=== PATIENT | female | born 1990 | race African-American/Black ===

== ENCOUNTER 2016-08-09 12:20 | Emergency (ER) | payer OTHER ==
[~2016-08-09] VITALS: Ht 165.1 cm; Wt 63.5 kg
[2016-08-09 12:21] VITALS: BP 151/60
[2016-08-09] MEDS ORDERED: NAPR500T PO (14:29)
[2016-08-09] MEDS ORDERED: CYCL10TA PO (14:29)
== END 2016-08-09 14:45 | disposition home or self-care (01) ==
LOC: M ED 14:36
DX: S16.1XXA Strain of muscle, fascia and tendon at neck level, initial encounter (principal); X50.3XXA Overexertion from repetitive movements, initial encounter; Y92.099 Unspecified place in other non-institutional residence as the place of occurrence of the external cause; Y93.E3 Activity, vacuuming; Y99.0 Civilian activity done for income or pay

== ENCOUNTER → 2016-11-02 | Outpatient (CLI) | payer OTHER ==
[~2016-11-02] MED LIST: CYCL10TA PO; NAPR500T PO
== END ==
LOC: M WUC 09:53
PROVIDERS: ATTEND Physician Assistant
DX: S29.012A Strain of muscle and tendon of back wall of thorax, initial encounter (principal); X58.XXXA Exposure to other specified factors, initial encounter; Y92.89 Other specified places as the place of occurrence of the external cause; Y93.89 Activity, other specified; Y99.8 Other external cause status

== ENCOUNTER → 2017-01-07 | Outpatient (CLI) | payer OTHER ==
--- NOTE | 2017-01-07 18:28 | REP ---
MR THORACIC SPINE WITHOUT CONTRAST: HISTORY: Back pain. There is no disc bulge or herniation. The spinal canal and the neural foramina are patent. The spinal cord is normal in signal intensity. Normal signal intensity is present in the thoracic vertebral bodies. IMPRESSION: There is no disc bulge or herniation. Signed by Jose Gomez MD 01/07/2017 07:44 P
== END ==
LOC: M RAD 15:01
PROVIDERS: ATTEND Orthopaedic Surgery
DX: M54.6 Pain in thoracic spine (principal)

== ENCOUNTER → 2017-04-11 | Outpatient (REF) | LOC: M LAB 15:30 | PROVIDERS: ATTEND Nurse Practitioner Adult Health | DX: Z02.9 Encounter for administrative examinations, unspecified (principal) ==

== ENCOUNTER 2017-05-18 09:28 | Emergency (ER) | payer OTHER ==
[2017-05-18 10:22] LABS: BASO % 0.2 % (0.0-1.0); EOS % 0.7 % (0.0-3.0); HEMATOCRIT 30.8 % (36.0-47.0); HEMOGLOBIN 9.8 g/dl (12.0-16.0); IMMATURE GRANULOCYTE % 0.2 % (0-0); LYMPH # 1.7 10^3/uL (1.5-6.5); LYMPH % 39.9 % (24.0-44.0); MEAN CORPUSCULAR HEMOGLOBIN 22.1 pg (27.0-33.0); MEAN CORPUSCULAR HGB CONC 31.8 g/dl (32.0-36.5); MEAN CORPUSCULAR VOLUME 69.5 fl (80.0-96.0); MONO # 0.3 10^3/uL (0.0-0.8); NEUTROPHILS # 2.3 10^3/uL (1.8-7.7); PLATELET COUNT, AUTOMATED 194 10^3/uL (150-450); RED BLOOD COUNT 4.43 10^6/uL (4.00-5.40); RED CELL DISTRIBUTION WIDTH 15.1 % (11.5-14.5); WHITE BLOOD COUNT 4.4 10^3/uL (4.0-10.0)
[2017-05-18 10:30] LABS: APPEARANCE, URINE HAZY (CLEAR); BACTERIA, URINE AUTO NEGATIVE (NEGATIVE); BILIRUBIN, URINE AUTO NEGATIVE (NEGATIVE); BLOOD, URINE BLOOD 3+ (NEGATIVE); COLOR, URINE RED (YELLOW); GLUCOSE, URINE (UA) AUTO NEGATIVE (NEGATIVE); KETONE, URINE AUTO NEGATIVE (NEGATIVE); LEUKOCYTE ESTERASE, URINE AUTO NEGATIVE (NEGATIVE); NITRITE, URINE AUTO NEGATIVE (NEGATIVE); PROTEIN, URINE AUTO 1+ mg/dL (NEGATIVE); RBC, URINE AUTO TNTC /HPF (0-3); SPECIFIC GRAVITY URINE AUTO 1.009 (1.002-1.035); SQUAMOUS EPITHELIAL CELL UR AU 0 /HPF (0-6); UROBILINOGEN, URINE AUTO 0.2 mg/dL (0.0-2.0); WBC, URINE AUTO 15 /HPF (0-3)
[2017-05-18 10:41] LABS: HCG, SERUM QUANTITATIVE 6 MIU/ML
== END 2017-05-18 12:06 | disposition home or self-care (01) ==
LOC: M ED 09:28
DX: O03.9 Complete or unspecified spontaneous abortion without complication (principal); N83.202 Unspecified ovarian cyst, left side
CPT/HCPCS: 76801

== ENCOUNTER → 2017-05-20 | Outpatient (CLI) | payer OTHER ==
[2017-05-20 09:26] LABS: HCG, SERUM QUANTITATIVE 4 MIU/ML
== END ==
LOC: M LAB 08:31
DX: O03.9 Complete or unspecified spontaneous abortion without complication (principal)
CPT/HCPCS: 84702

== ENCOUNTER → 2017-06-09 | Outpatient (CLI) | payer OTHER | LOC: M RAD 15:23 | DX: N83.202 Unspecified ovarian cyst, left side (principal) | CPT/HCPCS: 76856 ==

== ENCOUNTER → 2017-10-27 | Outpatient (CLI) | payer OTHER ==
[2017-10-27 13:40] LABS: BASO % 0.3 % (0.0-1.0); EOS % 0.5 % (0.0-3.0); HEMATOCRIT 28.4 % (36.0-47.0); HEMOGLOBIN 9.2 g/dl (12.0-15.5); IMMATURE GRANULOCYTE % 0.3 % (0-3.0); LYMPH # 1.3 10^3/uL (1.5-6.5); LYMPH % 21.1 % (24.0-44.0); MEAN CORPUSCULAR HEMOGLOBIN 22.7 pg (27.0-33.0); MEAN CORPUSCULAR HGB CONC 32.4 g/dl (32.0-36.5); MONO # 0.4 10^3/uL (0.0-0.8); NEUTROPHILS # 4.5 10^3/uL (1.8-7.7); NEUTROPHILS % 71.8 % (36.0-66.0); PLATELET COUNT, AUTOMATED 208 10^3/uL (150-450); RED BLOOD COUNT 4.06 10^6/uL (4.00-5.40); RED CELL DISTRIBUTION WIDTH 15.3 % (11.5-14.5); WHITE BLOOD COUNT 6.3 10^3/uL (4.0-10.0)
[2017-10-27 16:16] LABS: CHLAMYDIA DNA AMPLIFICATION NEGATIVE (NEGATIVE); GC DNA AMPLIFICATION NEGATIVE (NEGATIVE)
[2017-10-28 12:04] LABS: RUBELLA IgG QUALITATIVE IMMUNE (IMMUNE)
[2017-10-28 12:07] LABS: HBsAg Prenatal NEGATIVE (NEGATIVE)
[2017-10-28 12:33] LABS: HIV 1&2 SCREEN CENTAUR NEGATIVE (NEGATIVE)
== END ==
LOC: M SMT 09:30
DX: Z34.81 Encounter for supervision of other normal pregnancy, first trimester (principal); Z3A.08 8 weeks gestation of pregnancy
CPT/HCPCS: 86762

== ENCOUNTER 2017-10-28 20:12 | Emergency (ER) | payer OTHER | END 2017-10-29 00:23 | disposition left against medical advice (07) | LOC: M ED 20:12 | DX: Z53.21 Procedure and treatment not carried out due to patient leaving prior to being seen by health care provider (principal) ==

== ENCOUNTER 2017-10-29 10:31 | Emergency (ER) | payer OTHER ==
[2017-10-29] MEDS: NS 1,000 ML IV (10:00)
[2017-10-29 11:11] LABS: HCG, SERUM QUANTITATIVE 187470 MIU/ML
[2017-10-29 11:40] LABS: KETONE, URINE AUTO RFX TRACE mg/dL (NEGATIVE); LEUKOCYTE ESTERASE UR AUTO RFX NEGATIVE (NEGATIVE); NITRITE, URINE AUTO RFX NEGATIVE (NEGATIVE); RBC, URINE AUTO RFX 0 /HPF (0-3); SPECIFIC GRAVITY UR AUTO RFX 1.005 (1.002-1.035); SQUAM EPITHELIAL CELL UR AURFX 4 /HPF (0-6); WBC, URINE AUTO RFX 0 /HPF (0-3)
== END 2017-10-29 11:55 | disposition home or self-care (01) ==
LOC: M ED 10:31
DX: O26.891 Other specified pregnancy related conditions, first trimester (principal); R10.2 Pelvic and perineal pain; Z3A.09 9 weeks gestation of pregnancy
CPT/HCPCS: 76801

== ENCOUNTER 2018-01-05 12:06 | Emergency (ER) | payer OTHER ==
[2018-01-05 13:37] LABS: BEDSIDE GLUCOSE 81 MG/DL (70-105)
[2018-01-05 13:54] LABS: KETONE, URINE AUTO RFX NEGATIVE (NEGATIVE); LEUKOCYTE ESTERASE UR AUTO RFX NEGATIVE (NEGATIVE); MUCUS, URINE RFX SMALL (NEGATIVE); NITRITE, URINE AUTO RFX NEGATIVE (NEGATIVE); RBC, URINE AUTO RFX 0 /HPF (0-3); SPECIFIC GRAVITY UR AUTO RFX 1.019 (1.002-1.035); SQUAM EPITHELIAL CELL UR AURFX 5 /HPF (0-6); WBC, URINE AUTO RFX 2 /HPF (0-3)
[2018-01-05 13:55] LABS: BASO % 0.1 % (0.0-1.0); EOS % 0.6 % (0.0-3.0); HEMATOCRIT 24.7 % (36.0-47.0); HEMOGLOBIN 7.8 g/dl (12.0-15.5); IMMATURE GRANULOCYTE % 0.6 % (0-3.0); LYMPH # 1.4 10^3/uL (1.5-6.5); LYMPH % 20.6 % (24.0-44.0); MEAN CORPUSCULAR HEMOGLOBIN 22.7 pg (27.0-33.0); MEAN CORPUSCULAR HGB CONC 31.6 g/dl (32.0-36.5); MEAN CORPUSCULAR VOLUME 71.8 fl (80.0-96.0); MONO # 0.5 10^3/uL (0.0-0.8); MONO % 7.2 % (0.0-5.0); NEUTROPHILS # 4.9 10^3/uL (1.8-7.7); NEUTROPHILS % 70.9 % (36.0-66.0); PLATELET COUNT, AUTOMATED 182 10^3/uL (150-450); RED BLOOD COUNT 3.44 10^6/uL (4.00-5.40); RED CELL DISTRIBUTION WIDTH 15.9 % (11.5-14.5); WHITE BLOOD COUNT 6.9 10^3/uL (4.0-10.0)
[2018-01-05 14:23] LABS: ANION GAP 8 MEQ/L (8-16); BLOOD UREA NITROGEN 7 MG/DL (7-18); CALCIUM LEVEL 8.8 MG/DL (8.5-10.1); CARBON DIOXIDE LEVEL 26 MEQ/L (21-32); CHLORIDE LEVEL 105 MEQ/L (98-107); CREATININE FOR GFR 0.44 MG/DL (0.55-1.30); FREE THYROXINE INDEX 2.7 % (1.3-4.8); GLOMERULAR FILTRATION RATE > 60.0 (>60); GLUCOSE, FASTING 68 MG/DL (70-100); POTASSIUM SERUM 3.7 MEQ/L (3.5-5.1); SODIUM LEVEL 139 MEQ/L (136-145); T UPTAKE 20 % (30-39); THYROID STIMULATING HORMONE 0.407 uIU/ML (0.358-3.740); THYROXINE (T4) 13.6 UG/DL (4.5-12.0)
== END 2018-01-05 15:45 | disposition home or self-care (01) ==
LOC: M ED 12:06
DX: O26.92 Pregnancy related conditions, unspecified, second trimester (principal); R00.2 Palpitations; O99.012 Anemia complicating pregnancy, second trimester; D50.9 Iron deficiency anemia, unspecified
CPT/HCPCS: 76811

== ENCOUNTER → 2018-01-20 | Outpatient (CLI) | payer OTHER | LOC: M RAD 15:23 | DX: Z36.89 Encounter for other specified antenatal screening (principal); Z3A.21 21 weeks gestation of pregnancy | CPT/HCPCS: 76816 ==

== ENCOUNTER → 2018-02-28 | Outpatient (CLI) | payer OTHER ==
[2018-02-28 13:26] LABS: BASO % 0.2 % (0.0-1.0); EOS % 0.5 % (0.0-3.0); HEMATOCRIT 23.4 % (36.0-47.0); HEMOGLOBIN 7.3 g/dl (12.0-15.5); IMMATURE GRANULOCYTE % 0.9 % (0-3.0); LYMPH # 1.4 10^3/uL (1.5-6.5); LYMPH % 24.3 % (24.0-44.0); MEAN CORPUSCULAR HEMOGLOBIN 22.6 pg (27.0-33.0); MEAN CORPUSCULAR HGB CONC 31.2 g/dl (32.0-36.5); MEAN CORPUSCULAR VOLUME 72.4 fl (80.0-96.0); MONO # 0.5 10^3/uL (0.0-0.8); MONO % 7.9 % (0.0-5.0); NEUTROPHILS # 3.8 10^3/uL (1.8-7.7); NEUTROPHILS % 66.2 % (36.0-66.0); PLATELET COUNT, AUTOMATED 155 10^3/uL (150-450); RED BLOOD COUNT 3.23 10^6/uL (4.00-5.40); RED CELL DISTRIBUTION WIDTH 15.1 % (11.5-14.5); WHITE BLOOD COUNT 5.8 10^3/uL (4.0-10.0)
[2018-02-28 13:50] LABS: GLUCOSE CHALLENGE TEST 1 HOUR 97 MG/DL (LESS THAN 140)
== END ==
LOC: M LAB 11:46
DX: Z34.82 Encounter for supervision of other normal pregnancy, second trimester (principal); Z3A.00 Weeks of gestation of pregnancy not specified
CPT/HCPCS: 82950

== ENCOUNTER 2018-03-15 08:29 | Outpatient (CLI) | payer OTHER ==
[2018-03-15] MEDS: IRON SUCROSE 500 MG in NS 250 ML IV (09:30)
== END 2018-03-15 13:45 | disposition home or self-care (01) ==
LOC: M INFU 08:29
DX: D64.9 Anemia, unspecified (principal)
CPT/HCPCS: J1756

== ENCOUNTER → 2018-03-24 | Outpatient (CLI) | payer OTHER ==
[2018-03-24 14:33] LABS: BASO % 0.1 % (0.0-1.0); EOS % 0.4 % (0.0-3.0); HEMOGLOBIN 7.5 g/dl (12.0-15.5); IMMATURE GRANULOCYTE % 0.6 % (0-3.0); LYMPH # 1.3 10^3/uL (1.5-6.5); LYMPH % 18.6 % (24.0-44.0); MEAN CORPUSCULAR HEMOGLOBIN 23.1 pg (27.0-33.0); MEAN CORPUSCULAR HGB CONC 31.3 g/dl (32.0-36.5); MEAN CORPUSCULAR VOLUME 74.1 fl (80.0-96.0); MONO # 0.5 10^3/uL (0.0-0.8); NEUTROPHILS # 4.8 10^3/uL (1.8-7.7); NEUTROPHILS % 72.3 % (36.0-66.0); PLATELET COUNT, AUTOMATED 154 10^3/uL (150-450); RED BLOOD COUNT 3.24 10^6/uL (4.00-5.40); WHITE BLOOD COUNT 6.7 10^3/uL (4.0-10.0)
[2018-03-24 14:52] LABS: POS COUNT POS FLAG
== END ==
LOC: M SMT 09:27
DX: O99.012 Anemia complicating pregnancy, second trimester (principal)
CPT/HCPCS: 85025

== ENCOUNTER 2018-04-28 12:14 | Outpatient (CLI) | payer OTHER ==
[~2018-04-28] VITALS: Ht 167.6 cm; Wt 82.2 kg
[~2018-04-28 12:14] MED LIST changes: +IRON27TA2 PO; +MULTTAB20 PO; +NAPR-49 PO; -NAPR500T PO
[2018-04-28 12:20] VITALS: BP 105/55
[2018-04-28] MEDS ORDERED: IRON SUCROSE 500 MG in NS 250 ML OVER 4 HRS IV ONE (13:00)
[2018-04-28 13:46] VITALS: BP 108/59
[2018-04-28 14:30] VITALS: BP 113/60
[2018-04-28 15:30] VITALS: BP 110/65
[2018-04-28 17:00] VITALS: BP 118/61
[2018-04-28 18:16] VITALS: BP 120/65
== END 2018-04-28 18:13 | disposition home or self-care (01) ==
LOC: M INFU 12:14
PROVIDERS: ATTEND Obstetrics & Gynecology
DX: D64.9 Anemia, unspecified (principal)
CPT/HCPCS: 96365; 96366; J1756

== ENCOUNTER → 2018-05-10 | Outpatient (REF) | payer OTHER ==
[~2018-05-10] MED LIST changes: -NAPR-49 PO; +NAPR-50 PO
== END ==
LOC: M LAB REF 13:03
PROVIDERS: ATTEND Obstetrics & Gynecology
DX: O99.013 Anemia complicating pregnancy, third trimester (principal)

== ENCOUNTER 2018-06-01 04:27 | Inpatient (IN) | payer OTHER ==
[2018-06-01] VITALS (12 sets, daily range): BP systolic 113–169; BP diastolic 57–104
[~2018-06-01] VITALS: Ht 162.6 cm; Wt 85.0 kg
[2018-06-01] MEDS ORDERED: BUTORPHANOL 2 MG/ML INJ (J0595) IV ONE (05:30)
[2018-06-01] MEDS ORDERED: PROMETHAZINE INJ 25 MG/ML VIAL (J2550) IV ONE (05:30)
[2018-06-01 05:41] LABS: HEMATOCRIT 28.4 % (36.0-47.0); MEAN CORPUSCULAR HGB CONC 31.7 g/dl (32.0-36.5); MEAN CORPUSCULAR VOLUME 72.6 fl (80.0-96.0); PLATELET COUNT, AUTOMATED 161 10^3/uL (150-450); RED BLOOD COUNT 3.91 10^6/uL (4.00-5.40); WHITE BLOOD COUNT 8.7 10^3/uL (4.0-10.0)
--- NOTE | 2018-06-01 06:46 | HPE ---
DATE OF ADMISSION: 06/01/2018 Jaylyn is a 27-year-old 4, para 2-0-1-3 at 39-5/7 weeks gestation with an estimated date of confinement (EDC) of 06/03/2018 based on last menstrual period and confirmed with a first trimester ultrasound. She presents to labor and delivery today with report of onset of uncomfortable contractions at 2130 hours last night that have progressively become more uncomfortable and stronger. She denies any vaginal bleeding and leakage of fluid. The fetus has been active. Her care was initiated at [facility] in the first trimester. Her course has been complicated by previous section for twin delivery, she does desire a trial of labor after (TOLAC), and anemia. She has undergone iron transfusions during this . OBSTETRICAL HISTORY: January 2011 at 39 weeks gestation, vaginal delivery 7 pound 13 ounce female. July 2012 at 38 weeks a primary section for twin malpresentation, 5 pound 6 ounce female, 6 pound 5 ounce female. May 2017 spontaneous miscarriage. OBSTETRIC LABS: O positive, antibody screen negative, rubella immune, VDRL nonreactive. Urine culture no growth. Hep B surface antigen negative. HIV negative. Hep C antibody nonreactive. Gonorrhea and chlamydia negative. Gestational diabetic screening normal at 97. Her Group B Streptococcus (GBS) is negative. PAST MEDICAL HISTORY: Human papillomavirus (HPV). SURGERIES: section. FAMILY HISTORY: Hypertension, asthma. SOCIAL HISTORY Patient is single, however father of the baby at bedside and supportive. She is a nonsmoker. She denies alcohol and drug use. There is a history of HPV and gonorrhea. She does deny a history of abuse. ALLERGIES: No known drug allergies. CURRENT MEDICATIONS: Include: - vitamins OBJECTIVE: Temperature 98.8, pulse 106. Blood pressure is 134/75. She appears very uncomfortable with her contractions and is coping well with deep breathing and moaning. heart rate is 150 with moderate variability. There are 10 accelerations and there are occasional variable decelerations with contractions. She is pratima every 2-4 minutes. They do palpate strong. Her sterile vaginal exam 3 cm dilated, 90% effaced, -1 station, normal show. Her abdomen is gravid, cephalic presentation. Estimated weight around 8 pounds. ASSESSMENT: Intrauterine at 39-5/7 weeks. Early latent labor. PLAN: Admit the patient to labor and delivery. Routine labs. Out of bed ad kaci. Clear liquid diet. The patient desires to cope with her labor physiologically and reports she may request some IV pain medication. I do anticipate active labor. Dr. Riddle notified of the patient's status on arrival.
[2018-06-01] MEDS ORDERED: FENTANYL 2MCG/ML ROPIVACAINE 0.2% IN 0.9% NACL 100ML IVBAG As Ordered ONE (09:04)
[2018-06-01] MEDS ORDERED: OXYTOCIN 30 UNITS IN 0.9% NaCl 500ML IV BAG (J2590) As Ordered ONE (09:20)
[2018-06-01] MEDS ORDERED: OXYTOCIN DRIP 30 UNITS in APPROPRIATE DILUENT 1 EA IV SCH (09:57)
[2018-06-01] MEDS ORDERED: LIDOCAINE 1% MDV 20ML VIAL INFIL ONE (10:00)
[2018-06-01] MEDS ORDERED: RHOGAM 300 MCG (1500 IU) INJ (J2790) IM SCH (10:00)
[2018-06-01] MEDS ORDERED: MOM 30ML SUSPENSION UDC PO PRN (10:00)
[2018-06-01] MEDS ORDERED: MEASLES,MUMPS,RUBELLA VACCINE INJ (MMR-II) (90707) SC SCH (10:00)
[2018-06-01] MEDS ORDERED: DIBUCAINE 1% OINTMENT 30GM TOP PRN (10:00)
[2018-06-01] MEDS ORDERED: METHYLERGONOVINE MALEATE 0.2 MG TAB PO PRN (10:00)
[2018-06-01] MEDS ORDERED: DOCUSATE SODIUM 100 MG CAP PO PRN (10:00)
[2018-06-01] MEDS ORDERED: ACETAMINOPHEN 500 MG TAB PO PRN (10:00)
[2018-06-01] MEDS ORDERED: ANUSOL HC CREAM 30GM TOP PRN (10:00)
--- NOTE | 2018-06-01 10:11 | DN ---
DATE OF DELIVERY: 06/01/2018 TIME OF : 0928 hours. GENDER: Female. SCORE: 9 and 9. WEIGHT: 3260 grams or 7 pounds 3 ounces. LACERATIONS: Second-degree midline laceration. ANESTHESIA: None. ESTIMATED BLOOD LOSS: 300 mL. COUNTS: 5 laparotomy sponges accounted for prior to and after delivery. 3 sharps removes from the delivery field. DELIVERY NOTE: On 06/01/2018, at 0928 hours, Mrs. Kelly, a 27-year-old, 4, now para 4, had a vaginal after section of a liveborn female infant, score 9 and 9, weight was 3260 grams or 7 pounds 3 ounces. Head was delivered occiput anterior (OA), followed by delivery of shoulders and corpus. Infant was handed to mom with a good cry. Cord was then clamped times two. It and was cut by the father of the baby under my direction. Placenta was then drained and delivered grossly intact. A premixed bag of 500 mL of normal saline with 30 units of Pitocin was then bolused along with uterine massage until the uterus was firm. On inspection, there was a second-degree midline laceration, which was repaired with 30 Vicryl Rapide after infusing it with 1% lidocaine. On re-inspection, the cervix, vagina and perineum was grossly intact and hemostatic. Mom and baby recovered in stable condition. The couple have decided to name their daughter, .
[2018-06-01] MEDS: IBUPROFEN 800 MG TAB PO PRN ×2 (11:32→19:24)
[2018-06-02 06:00] VITALS: BP 109/53
--- NOTE | 2018-06-02 07:46 | NUR ---
PPD#1 S: Doing well w/o complaints. Decreasing lochia, pain controlled, + voids and ambulation. O: vss, AF Gen: well appearing abd: soft, nttp with ff@u-1 ext: neg calf tenderness A/P: PPD#1 s/p vaginal delivery -currently stable -continue routine care -d/c plans for tomorrow Shaylee Riddle MD
[2018-06-02] MEDS: PRENATAL VITAMINS CHEWABLE TABLET PO SCH (08:47)
[2018-06-02] MEDS: IBUPROFEN 800 MG TAB PO PRN (12:48)
[2018-06-02 18:00] VITALS: BP 101/52
[2018-06-03] MEDS: IBUPROFEN 800 MG TAB PO PRN (01:11)
[2018-06-03 05:56] VITALS: BP 107/56
[2018-06-03] MEDS: PRENATAL VITAMINS CHEWABLE TABLET PO SCH (07:33)
[2018-06-03] MEDS ORDERED: MAPA500T2 PO (08:33)
[2018-06-03] MEDS ORDERED: IBUP-1114 PO (08:33)
== END 2018-06-03 11:10 | disposition home or self-care (01) | DRG 560 ==
LOC: M LDO 04:27 → M LDI 05:08 → M OBS 12:30
PROVIDERS: ADMIT Advanced Practice Midwife; ATTEND Advanced Practice Midwife
PROC: 10E0XZZ Delivery of Products of Conception, External Approach (ICD-10-PCS; principal; 2018-06-01)
PROC: 0KQM0ZZ Repair Perineum Muscle, Open Approach (ICD-10-PCS; 2018-06-01)
DX: O34.211 Maternal care for low transverse scar from previous cesarean delivery (principal); D50.9 Iron deficiency anemia, unspecified; Z37.0 Single live birth; Z3A.39 39 weeks gestation of pregnancy; O70.1 Second degree perineal laceration during delivery; O99.02 Anemia complicating childbirth

== ENCOUNTER → 2019-09-25 | Outpatient (REF) | payer OTHER ==
[~2019-09-25] MED LIST changes: +CYCL-707 PO; -CYCL10TA PO; +IBUP-1114 PO; +MAPA500T2 PO; -NAPR-50 PO; +NAPR-837 PO
== END ==
LOC: M WUC 16:04
PROVIDERS: ATTEND Nurse Practitioner Family
DX: R30.0 Dysuria (principal)

== ENCOUNTER 2022-04-10 14:59 | Inpatient (IN) | payer OTHER ==
[~2022-04-10] VITALS: Ht 165.1 cm; Wt 74.4 kg
[~2022-04-10 14:59] MED LIST changes: -AUGM500T34 PO; -HYDR-3715 PO
[2022-04-10] MEDS ORDERED: ACETAMINOPHEN 500 MG TAB PO ONE (15:30)
[2022-04-10] MEDS ORDERED: NS 1,000 ML IV ONE (15:30)
[2022-04-10 15:49] LABS: BASO % 0.3 % (0.0-1.0); HEMATOCRIT 29.5 % (36.0-47.0); HEMOGLOBIN 9.6 g/dl (12.0-15.5); LYMPH % 13.7 % (24.0-44.0); MEAN CORPUSCULAR HEMOGLOBIN 22.7 pg (27.0-33.0); MEAN CORPUSCULAR HGB CONC 32.5 g/dl (32.0-36.5); MEAN CORPUSCULAR VOLUME 69.7 fl (80.0-96.0); MONO # 0.4 10^3/uL (0.0-0.8); MONO % 5.5 % (2.0-8.0); PLATELET COUNT, AUTOMATED 215 10^3/uL (150-450); RED BLOOD COUNT 4.23 10^6/uL (4.00-5.40); WHITE BLOOD COUNT 7.5 10^3/uL (4.0-10.0)
[2022-04-10] MEDS ORDERED: PIPERACILLIN/TAZOBACTAM SOD 3.375 GM in D5W MINI-BAG PLUS 50 ML IV ONE (15:50)
[2022-04-10 16:26] LABS: ALBUMIN 3.9 G/DL (3.2-5.2); BILIRUBIN,DIRECT 0.2 MG/DL (<0.4); BILIRUBIN,TOTAL 0.7 MG/DL (0.3-1.2); TOTAL PROTEIN 7.7 G/DL (5.7-8.2)
[2022-04-10 16:33] LABS: RSV AMPLIFICATION NEGATIVE (NEGATIVE)
[2022-04-10 17:08] LABS: HCG, SERUM QUANTITATIVE 2.59999 MIU/ML (<4.2)
[2022-04-10] MEDS ORDERED: ISOVUE-370 76% 100ML VIAL As Ordered ONE (17:41)
[2022-04-10] MEDS ORDERED: HOME MED LIST COMPLETE! XX SCH (19:00)
[2022-04-10] MEDS ORDERED: propofoL 200 MG/20 ML VIAL As Ordered ONE (19:24)
[2022-04-10] MEDS ORDERED: dexameTHASONE 4 MG/ML 1ML VIAL (J1100 PER 1MG) As Ordered ONE (19:24)
[2022-04-10] MEDS ORDERED: fentaNYL 250 MCG/5 ML INJECTION As Ordered ONE (19:24)
[2022-04-10] MEDS ORDERED: KETOROLAC 60MG 2ML VIAL As Ordered ONE (19:24)
[2022-04-10] MEDS ORDERED: ONDANSETRON 4MG 2ML VIAL As Ordered ONE (19:24)
[2022-04-10] MEDS ORDERED: SUGAMMADEX SODIUM 500 MG/5 ML VIAL (BRIDION) As Ordered ONE (19:24)
[2022-04-10] MEDS ORDERED: LIDOCAINE 2% 100MG/5ML SDV (FOR ANES.) As Ordered ONE (19:24)
[2022-04-10] MEDS ORDERED: ROCURONIUM BROMIDE 50 MG/5 ML VIAL As Ordered ONE (19:24)
[2022-04-10] MEDS ORDERED: METOCLOPRAMIDE INJ 10MG/2ML VIAL (J2765 PER 1) As Ordered ONE (19:24)
[2022-04-10] MEDS ORDERED: MIDAZOLAM INJ 2MG/2ML VIAL (J2250 PER 1MG) As Ordered ONE (19:25)
[2022-04-10] MEDS ORDERED: ONDANSETRON 4MG 2ML VIAL IV PRN ×2 (20:40→22:30)
[2022-04-10] MEDS ORDERED: KETOROLAC 30 MG/ML 1ML VIAL IV PRN (20:40)
[2022-04-10] MEDS ORDERED: NORCO, ANEXSIA 5/325MG TABLET (HYDROcodone/ACETAMINOPHEN) PO PRN ×2 (20:40)
[2022-04-10] MEDS ORDERED: ACETAMINOPHEN TAB 650MG DOSE (2X325MG) PO PRN (20:40)
[2022-04-10] MEDS ORDERED: BUPIVACAINE/EPIN 0.25% 30 ML VIAL As Ordered ONE (20:43)
[2022-04-10] MEDS ORDERED: PHENYLephrine 500MCG 5ML (100MCG/ML) SYRINGE As Ordered ONE (21:53)
[2022-04-10] MEDS ORDERED: PIPERACILLIN/TAZOBACTAM SOD 3.375 GM in D5W MINI-BAG PLUS 50 ML IV SCH (22:00)
[2022-04-10] MEDS ORDERED: ZOSYN 3.375GM VIAL As Ordered ONE (22:03)
[2022-04-10] MEDS ORDERED: oxyCODONE 5MG TAB PO PRN (22:30)
[2022-04-10] MEDS ORDERED: MORPHINE 2 MG/ML 1ML VIAL IV PRN (22:30)
[2022-04-10] MEDS ORDERED: LR 1,000 ML IV SCH (22:30)
[2022-04-10] MEDS ORDERED: fentaNYL 100 MCG/2 ML INJECTION As Ordered ONE (22:41)
[2022-04-10] MEDS: fentaNYL 100 MCG/2 ML INJECTION IV PRN ×2 (22:58→23:03)
[2022-04-10 23:08] VITALS: BP 146/96
[2022-04-10 23:38] VITALS: BP 144/93
[2022-04-11] VITALS (7 sets, daily range): BP systolic 115–142; BP diastolic 69–92
[2022-04-11] MEDS: SENOKOT S TAB PO SCH ×2 (00:31→08:49)
[2022-04-11] MEDS: NS 1,000 ML IV SCH ×3 (00:31→12:40)
[2022-04-11] MEDS: PIPERACILLIN/TAZOBACTAM SOD 3.375 GM in D5W MINI-BAG PLUS 50 ML IV SCH ×2 (03:09→09:00)
[2022-04-11 06:17] LABS: HEMATOCRIT 27.4 % (36.0-47.0); HEMOGLOBIN 8.6 g/dl (12.0-15.5); MEAN CORPUSCULAR HEMOGLOBIN 22.4 pg (27.0-33.0); MEAN CORPUSCULAR HGB CONC 31.4 g/dl (32.0-36.5); MEAN CORPUSCULAR VOLUME 71.4 fl (80.0-96.0); PLATELET COUNT, AUTOMATED 212 10^3/uL (150-450); RED BLOOD COUNT 3.84 10^6/uL (4.00-5.40); WHITE BLOOD COUNT 6.7 10^3/uL (4.0-10.0)
[2022-04-11 06:38] LABS: BLOOD UREA NITROGEN 10 MG/DL (9-23); CALCIUM LEVEL 8.3 MG/DL (8.5-10.1); CARBON DIOXIDE LEVEL 26 MMOL/L (20-31); CHLORIDE LEVEL 102 MMOL/L (98-107); CREATININE FOR GFR 0.67 MG/DL (0.55-1.30); GLOMERULAR FILTRATION RATE > 60.0 (>60); GLUCOSE, FASTING 124 MG/DL (60-100); POTASSIUM SERUM 3.7 MMOL/L (3.5-5.1); SODIUM LEVEL 138 MMOL/L (136-145)
[2022-04-11] MEDS ORDERED: PANTOPRAZOLE 40MG VIAL IV SCH (09:00)
[2022-04-11] MEDS ORDERED: HYDR-3715 PO (11:04)
[2022-04-11] MEDS ORDERED: AUGM500T34 PO (11:04)
== END 2022-04-11 12:45 | disposition home or self-care (01) | DRG 225 ==
LOC: M ED 14:59 → M ED INP 20:36 → M MSPAV 23:08
PROVIDERS: ADMIT Surgery; ATTEND Surgery
PROC: 0DTJ4ZZ Resection of Appendix, Percutaneous Endoscopic Approach (ICD-10-PCS; principal; 2022-04-10 19:15)
DX: K35.80 Unspecified acute appendicitis (principal); Z88.8 Allergy status to other drugs, medicaments and biological substances

== ENCOUNTER → 2022-04-10 | Outpatient (REF) | payer OTHER ==
[~2022-04-10] MED LIST changes: +AUGM500T34 PO; +HYDR-3715 PO
== END ==
LOC: M LAB REF 19:57
PROVIDERS: ATTEND Physician Assistant
DX: R30.0 Dysuria (principal)